=== PATIENT | male | born 1965 | race African-American/Black ===

== ENCOUNTER 2017-03-20 07:39 | Emergency (ER) | payer SELFPAY ==
[~2017-03-20] VITALS: Ht 182.9 cm; Wt 95.5 kg
[2017-03-20 07:41] VITALS: BP 138/86; PULSE 82; RESP 20; TEMP 97.5; O2SAT 98
[2017-03-20] MEDS ORDERED: IBUP800T23 PO (07:58)
--- NOTE | 2017-03-20 07:59 | PD ---
HPI Chief Complaint: Bite or Sting Time Seen by Provider: 07:57 Travel History International Travel<30 days: No Contact w/Intl Traveler<30days: No Traveled to known affect area: No History of Present Illness HPI 52-year-old male presents to the emergency Department with complaint of possible insect bites to his right second and third digits 2 weeks. He said this started out as blisters and then he popped them and they have not completely healed yet. He says they are painful and throbbing. He denies fever , chills, nausea, vomiting. Denies paresthesias, loss of sensation, decreased range of motion, decreased strength to the affected extremity and hand. Denies edema, erythema, drainage from the wound sites. Has not taken any medications to alleviate his symptoms. Was told to wash the areas with bleach, which he has been doing. Patient says that EMS told him the areas would be fine, and the people at the [facility] told him to come to the ER for check up. Denies being up-to-date on his tetanus vaccination. No known allergies. Has no other medical complaints. No established primary care provider. No other modifying factors or associated signs and symptoms. [facility] Social History Tobacco Use: Yes Allergies-Medications (Allergen,Severity, Reaction): Coded Allergies: No Known Allergies (Unverified , 03/20/17) Reported Meds & Prescriptions Reported Meds & Active Scripts Active Ibuprofen 800 Mg Tab 800 Mg PO Q6HR PRN Review of Systems Except as stated in HPI: all other systems reviewed are Neg Physical Exam Narrative GENERAL: Well-nourished, well-developed male patient, in no acute distress; afebrile, nontoxic-appearing SKIN: Warm and dry. Right second and third digits with scabbed wound; without erythema, edema, drainage. No signs of infection. The fingers are without erythema, edema and with full range of motion and sensory intact. Right upper extremity supple non-tense with 2+ radial pulses and sensory intact without erythema or edema. HEAD: Atraumatic. Normocephalic. EYES: Pupils equal and round. No scleral icterus. No injection or drainage. ENT: Mucosa pink and moist. Airway patent. NECK: Trachea midline. CARDIOVASCULAR: Regular rate. RESPIRATORY: No accessory muscle use. GASTROINTESTINAL: Rounded. MUSCULOSKELETAL: No obvious deformities. No clubbing. No cyanosis. No edema. NEUROLOGICAL: Awake and alert. Oriented 3. No obvious cranial nerve deficits. Motor grossly within normal limits. Normal speech. PSYCHIATRIC: Appropriate mood and affect; insight and judgment normal. Data Data Last Documented VS Vital Signs Date Time Temp Pulse Resp B/P Pulse Ox O2 Delivery O2 Flow Rate FiO2 03/20/17 07:41 97.5 82 20 138/86 98 Room Air Orders Ibuprofen (Motrin) (03/20/17 08:00) Tetanus/Diphtheria Tox Adult (Tetanus/Di (03/20/17 08:00) MDM Medical Decision Making Medical Screen Exam Complete: Yes Emergency Medical Condition: Yes Medical Record Reviewed: Yes Differential Diagnosis Healing wounds, insect bites, wound infection, medical clearance Narrative Course 52-year-old male with physical exam consistent with healing wounds to the right second and third digits. Tetanus updated in the ER. There are no signs of infection to either wound. Both of them are scabbed and without erythema, edema , drainage. Patient denies fever, chills, nausea, vomiting. He is afebrile nontoxic appearing in the ER. Patient reports throbbing sensation in his fingers. Ibuprofen ordered. Ibuprofen prescribed for home. Patient verbalizes understanding and agreement with treatment plan. Patient is medically cleared and stable for discharge. Discussed reasons to return to the emergency department. Instructed patient to follow up with primary care provider. Patient agrees with treatment plan. The patients vital signs are stable and the patient is stable for outpatient follow-up and treatment. Patient discharged home, stable and in no acute distress. Diagnosis Primary Impression: Healing wound Referrals: Primary Care Physician Patient Instructions: Acute Wound Care (ED), General Instructions, Insect Bite or Sting (ED) Additional Instructions: Keep area clean and dry Topical ointment as directed and as needed for wound care Ibuprofen or Tylenol as directed and as needed for pain Follow-up with primary care provider Return to the emergency department immediately with worsening symptoms, particularly as discussed Med/Other Pt SpecificInfo: Prescription(s) given Scripts Ibuprofen 800 Mg [id number] Mg PO Q6HR PRN (PAIN) #30 TAB Ref 0 Prov:Maura White 03/20/17 Disposition: DISCHARGE HOME Condition: Stable Maura White Mar 20, 2017 07:59
[2017-03-20] MEDS ORDERED: TETANUS/DIPHTHERIA TOXOID ADULT 0.5 ML VIAL IM ONE (08:00)
[2017-03-20] MEDS ORDERED: IBUPROFEN 800 MG TAB PO ONE (08:00)
[2017-03-20] MEDS ORDERED: PROZ20CA11 PO (08:02)
== END 2017-03-20 08:24 | disposition home or self-care (01) ==
LOC: NEPK 07:39
DX: S61.200A Unspecified open wound of right index finger without damage to nail, initial encounter (principal); S61.202A Unspecified open wound of right middle finger without damage to nail, initial encounter; X58.XXXA Exposure to other specified factors, initial encounter; Z23 Encounter for immunization
CPT/HCPCS: 90471; 90714

== ENCOUNTER 2017-10-24 11:04 | Emergency (ER) | payer SELFPAY ==
[~2017-10-24 11:04] MED LIST: IBUP1TAB7 PO; PROZ20CA11 PO
[2017-10-24 11:05] VITALS: BP 138/92; PULSE 94; RESP 16; TEMP 98.6; O2SAT 99
[2017-10-24] MEDS ORDERED: MAGICADU2 SWISH-SWAL (11:40)
[2017-10-24] MEDS ORDERED: IBUP1TAB7 PO (11:40)
[2017-10-24] MEDS ORDERED: PENI500T PO (11:40)
--- NOTE | 2017-10-24 11:46 | PD ---
HPI Chief Complaint: Oral / Dental Pain or Problem Time Seen by Provider: 11:28 Travel History International Travel<30 days: No Contact w/Intl Traveler<30days: No Traveled to known affect area: No History of Present Illness HPI 52-year-old male presents to emergency department for left lower gum/tooth pain since Tuesday. Patient states that his tooth started becoming more painful and is moderate. The pain does not radiate Patient has tried to call multiple dentist is having trouble getting into the office secondary to insurance issues. Patient denies a chronic history of tooth problems. Patient denies fever, chills. Patient denies abnormal taste or pain eating. Medical history includes new disorder and hepatitis C. Patient states that he will get in with a dentist as soon as possible. He has been taking Tylenol and ibuprofen with minimal relief. PFSH Past Medical History Bipolar Disorder: Yes Depression: Yes Immunizations Current: Yes Past Surgical History Surgical History: No Previous Surgery Social History Alcohol Use: Yes (daily, beer) Tobacco Use: Yes Substance Use: No Allergies-Medications (Allergen,Severity, Reaction): Coded Allergies: No Known Allergies (Unverified Adverse Reaction, Unknown, 10/24/17) Reported Meds & Prescriptions Reported Meds & Active Scripts Active Ibuprofen 800 Mg Tab 800 Mg PO Q8H PRN 7 Days Penicillin V Potassium 500 Mg Tab 500 Mg PO Q8H 7 Days Magic Mouthwash Adult Liq (Multi-Ingredient Mouthwash/Gargle) 120 Ml Susp 10 Ml SWISH-SWAL ACHS 7 Days Each 5mL contains: Nystatin 200,000units, Diphenhydramine 4.25mg, Viscous Lidocaine 10mg, Anglin syrup 0.8 mL Review of Systems Except as stated in HPI: all other systems reviewed are Neg Physical Exam Narrative GENERAL: Well-nourished, well-developed patient. SKIN: Focused skin assessment warm/dry. HEAD: Normocephalic. EYES: No scleral icterus. No injection or drainage. MOUTH: Mucous membranes moist. White patches along the left lower gumline and nuchal mucosa. No fluctuance noted. No expression of exudate. Molar decayed. NECK: Supple, trachea midline. No JVD or lymphadenopathy. CARDIOVASCULAR: Regular rate and rhythm without murmurs, gallops, or rubs. RESPIRATORY: Breath sounds equal bilaterally. No accessory muscle use. MUSCULOSKELETAL: No cyanosis, or edema. BACK: Nontender without obvious deformity. No CVA tenderness. Data Data Last Documented VS Vital Signs Date Time Temp Pulse Resp B/P (MAP) Pulse Ox O2 Delivery O2 Flow Rate FiO2 10/24/17 12:00 10/24/17 11:05 98.6 94 16 99 Orders Orders Acetamin-Hydrocod 325-5 Mg ([place] 5-325 (10/24/17 12:00) Ed Discharge Order (10/24/17 11:46) MDM Medical Decision Making Medical Screen Exam Complete: Yes Emergency Medical Condition: Yes Differential Diagnosis Dental abscess versus tooth infection versus, infection. Narrative Course 52-year-old male presents to emergency department for left lower gum/tooth pain since Tuesday. Patient states that his tooth started becoming more painful and is moderate. The pain does not radiate Patient has tried to call multiple dentist is having trouble getting into the office secondary to insurance issues. Patient denies a chronic history of tooth problems. Patient denies fever, chills. Patient denies abnormal taste or pain eating. Medical history includes new disorder and hepatitis C. Patient states that he will get in with a dentist as soon as possible. He has been taking Tylenol and ibuprofen with minimal relief. Vital signs stable Physical exam- consistent with gingivitis and tooth abscess, oral candidiasis. No meningismus Antibiotic, mouth rinse, and ibuprofen were outpatient use. Gave patient information regarding dentist. Follow-up primary care physician within 2-3 days. Follow-up with dentist. Return to the emergency department for worsening persistent symptoms Diagnosis Primary Impression: Dental infection Additional Impression: Oral candidiasis Referrals: Dentist Primary Care Physician Additional Instructions: Use medication as prescribed. Follow-up with the dentist and your primary care physician with within 2-3 days. If her symptoms persist or worsen return to the emergency department Scripts Ibuprofen (Ibuprofen) 800 Mg Tab 800 MG PO Q8H Y for Pain/Inflammation for 7 Days, #21 TAB 0 Refills Prov: Oskar Rodriguez MD 10/24/17 Penicillin V Potassium (Penicillin V Potassium) 500 Mg Tab 500 MG PO Q8H for Infection for 7 Days, #21 TAB 0 Refills Prov: Oskar Rodriguez MD 10/24/17 Uaaktvqe-Weovqamdiyupkie-Ebmbrmgsh Liq (Magic Mouthwash Adult Liq) 120 Ml Susp 10 ML SWISH-SWAL ACHS for Infection for 7 Days, #120 ML 0 Refills Each 5mL contains: Nystatin 200,000units, Diphenhydramine 4.25mg, Viscous Lidocaine 10mg, Anglin syrup 0.8 mL Prov: Oskar Rodriguez MD 10/24/17 Disposition: 01 DISCHARGE HOME Condition: Stable Maude Grimes Oct 24, 2017 11:46
[2017-10-24] MEDS ORDERED: ACETAMINOPHEN/HYDROcodone 325 MG/5 MG TAB PO ONE (12:00)
== END 2017-10-24 12:20 | disposition home or self-care (01) ==
LOC: NEPK 11:04
DX: K04.7 Periapical abscess without sinus (principal); B37.0 Candidal stomatitis; F31.9 Bipolar disorder, unspecified; Z72.0 Tobacco use
CPT/HCPCS: 99283

== ENCOUNTER 2018-02-09 10:35 | Emergency (ER) | payer OTHER ==
[~2018-02-09 10:35] MED LIST changes: +MAGICADU2 SWISH-SWAL; +PENI500T PO; -PROZ20CA11 PO
--- NOTE | 2018-02-09 10:50 | PD ---
HPI Chief Complaint: Efrain romeo Time Seen by Provider: 10:40 Travel History International Travel<30 days: No Contact w/Intl Traveler<30days: No Traveled to known affect area: No History of Present Illness HPI 52-year-old male was Efrain breen and brought to the ED for evaluation. Patient states that he had an argument and his boss last week and threatened his boss. Patient went to [facility] today for routine visit and reported incident to the health care provider. Patient was Efrain acted and brought to the ED for evaluation. Patient denies any homicidal suicidal ideation now. Patient denies any headache. Patient denies any visual change. Patient denies any chest pain or shortness of breath. Patient denies abdominal pain. Patient has history of mood swings and bipolar disorder. Patient was given prescription last month however has not taken the medication. Patient states that he has history of alcohol consumption daily. Patient states that he has shaky if he stopped drinking alcohol. Patient denies any illicit drug abuse. PFSH Past Medical History Bipolar Disorder: Yes Depression: Yes Immunizations Current: Yes Social History Alcohol Use: Yes (daily, beer) Tobacco Use: Yes Substance Use: No Allergies-Medications (Allergen,Severity, Reaction): Coded Allergies: No Known Allergies (Unverified Adverse Reaction, Unknown, 10/24/17) Reported Meds & Prescriptions Reported Meds & Active Scripts Active Ibuprofen 800 Mg Tab 800 Mg PO Q8H PRN 7 Days Penicillin V Potassium 500 Mg Tab 500 Mg PO Q8H 7 Days Magic Mouthwash Adult Liq (Multi-Ingredient Mouthwash/Gargle) 120 Ml Susp 10 Ml SWISH-SWAL ACHS 7 Days Each 5mL contains: Nystatin 200,000units, Diphenhydramine 4.25mg, Viscous Lidocaine 10mg, Anglin syrup 0.8 mL Review of Systems General / Constitutional: No: Fever Eyes: No: Visual changes HENT: No: Headaches Cardiovascular: No: Chest Pain or Discomfort Respiratory: No: Shortness of Breath Gastrointestinal: No: Abdominal Pain Genitourinary: No: Dysuria Musculoskeletal: No: Pain Skin: No Rash Neurologic: No: Weakness Psychiatric: No: Depression Endocrine: No: Polydipsia Hematologic/Lymphatic: No: Easy Bruising Physical Exam Narrative GENERAL: Well-nourished, well-developed patient. SKIN: Focused skin assessment warm/dry. HEAD: Normocephalic. EYES: No scleral icterus. No injection or drainage. NECK: Supple, trachea midline. No JVD or lymphadenopathy. CARDIOVASCULAR: Regular rate and rhythm without murmurs, gallops, or rubs. RESPIRATORY: Breath sounds equal bilaterally. No accessory muscle use. GASTROINTESTINAL: Abdomen soft, non-tender, nondistended. MUSCULOSKELETAL: No cyanosis, or edema. BACK: Nontender without obvious deformity. No CVA tenderness. Neurologic exam normal. Data Data Orders Orders Complete Blood Count With Diff (02/09/18 10:46) Comprehensive Metabolic Panel (02/09/18 10:46) Thyroid Stimulating Hormone (02/09/18 10:46) Psych Screen (02/09/18 10:46) Drug Screen, Random Urine (02/09/18 10:46) Alcohol (Ethanol) (02/09/18 10:46) MDM Medical Decision Making Medical Screen Exam Complete: Yes Emergency Medical Condition: Yes Differential Diagnosis Differential diagnosis including adjustment disorder, bipolar disorder. Narrative Course 52-year-old male with history of bipolar disorder, was going, was Zuniga acted for threatening his boss. Patient denies any homicidal or suicidal ideation now. History of alcohol abuse. Meño Hernandez MD Feb 09, 2018 10:50
[2018-02-09] MEDS ORDERED: FLUO-1 PO (10:51)
[2018-02-09] MEDS ORDERED: DIVA250ER PO (10:51)
[2018-02-09 10:58] VITALS: BP 140/99; PULSE 79; RESP 20; TEMP 98; O2SAT 99
[2018-02-09 11:10] LABS: AUTOMATED NEUTROPHIL # 2.9 TH/MM3 (1.8-7.7); BASOPHIL % 0.7 % (0.0-2.0); EOSINOPHIL % 0.7 % (0.0-4.0); HEMATOCRIT 48.3 % (39.0-51.0); HEMOGLOBIN 16.4 GM/DL (13.0-17.0); LYMPH % 26.5 % (9.0-44.0); LYMPHOCYTE # 1.2 TH/MM3 (1.0-4.8); MEAN CELL VOLUME 102.6 FL (80.0-100.0); MEAN CORPUSCULAR HGB CONC 34.1 % (32.0-36.0); MEAN PLATELET VOLUME 6.8 FL (7.0-11.0); MONO % 9.4 % (0.0-8.0); MONOCYTE # 0.4 TH/MM3 (0-0.9); NEUT % 62.7 % (16.0-70.0); PLATELET COUNT 250 TH/MM3 (150-450); WHITE BLOOD COUNT 4.7 TH/MM3 (4.0-11.0)
[2018-02-09 11:25] LABS: ALBUMIN 4.2 GM/DL (3.4-5.0); ALT (GPT) 20 U/L (12-78); AST (GOT) 24 U/L (15-37); BICARBONATE 29.9 MEQ/L (21.0-32.0); BLOOD UREA NITROGEN 8 MG/DL (7-18); CHLORIDE 103 MEQ/L (98-107); CREATININE 1.08 MG/DL (0.60-1.30); GLOMERULAR FILTRATION RATE 87 ML/MIN (>89); GLUCOSE,RANDOM 96 MG/DL (74-106); SODIUM (NA) 138 MEQ/L (136-145)
[2018-02-09 11:33] LABS: ALKALINE PHOSPHATASE 62 U/L (45-117); TOTAL BILIRUBIN ADULT 0.6 MG/DL (0.2-1.0); TOTAL PROTEIN 7.9 GM/DL (6.4-8.2)
[2018-02-09] MEDS ORDERED: LURA20TA PO (11:33)
[2018-02-09 18:33] VITALS: BP 127/89; PULSE 70; RESP 18; O2SAT 100
--- NOTE | 2018-02-09 19:23 | PD ---
History of Present Illness Chief Complaint: Psychiatric Symptoms Time Seen by Provider: 18:20 Travel History International Travel<30 Days: No Contact w/Intl Traveler<30days: No Known affected area: No Legal Status Legal Status: Zuniga Act Zuniga Act Signed By: [facility] History of Present Illness: History of Present Illness 52-year-old, single, male with history of bipolar disorder who presents to [facility] ED under a Zuniga act initiated by CLYDE Mckeon at [facility] outpatient clinic. The Zuniga act alleges that" the patient is expressing homicidal ideation towards his boss, cutting boss with a knife. He was intending to cut the bus boss on Tuesday and he still thinking about this" it also states that he did not take prescribed medication for depression and that in September 2017 his current boss sent him to [facility] for evaluation of impulsivity, aggression and not trusting of people. Electronic medical record is reviewed. No previous contact with [facility] psychiatry. Current toxicology is positive for cocaine. Patient has been monitored in [facility] and he is resented no behavioral concerns. He has been isolative.. Patient is alert, and oriented, casually dressed and maintaining basic hygiene. Eye contact is fair. His affect is blunted. Speech is clear, logical and goal-directed. Of normal rate but low tone. Patient reports that he is been struggling with his anger lately and that he is trying to control it. He admits to having auditory hallucinations non command type " things about my job ". He denies suicidal ideation. Endorses having had thoughts of "wanting to do something to his boss and then states I had a knife in my pocket." Patient reports that he has not been compliant with his prescribed medication including not having taken the left to do that was ordered for him, intermittently taking the Depakote as well as the Prozac. States he sleeping between 4-5 hours per night. He admits to use of alcohol 1-2 cans per day. Denies any other substance use but toxicology is positive for cocaine. PFSH Past Medical History Bipolar Disorder: Yes Depression: Yes Immunizations Current: Yes Tetanus Vaccination: < 5 Years Psychiatric History Psychiatric History Hx Psychiatric Treatment: [facility] outpatient treatment Reports his first psychiatric hospitalization was in 2004 after his mother . and after that he's had 3 suicide attempts. He attempted to hang himself while he was incarcerated in 2004, in 2006 attempted to hang himself as well and in 2009. History of Inpatient Treatment: Yes Guns or firearms in home: No Social History Patient born in [place]. Moved from [place] in December. Lives by himself. He states that he is single and has no family in the area. He has an extensive legal history and served 15 years in residential for aggravated battery. He was released in December 2016. He is currently employed at [employer] and has been employed there for the past 5 months. His mother in 2004 Hx Alcohol Use: Yes (daily, beer) Hx Tobacco Use: Yes Hx Substance Use: Yes Substance Use Type: Alcohol, Nicotine/Cigarettes, Cocaine Hx of Substance Use Treatment: No Family Psychiatric History Unknown Allergies-Medications (Allergen,Severity, Reaction): Coded Allergies: No Known Allergies (Unverified Adverse Reaction, Unknown, 02/09/18) Reported Meds & Prescriptions Reported Meds & Active Scripts Active Reported Latuda (Lurasidone) 20 Mg Tab 20 Mg PO HS Depakote ER (Divalproex Sodium) 250 Mg Hector 250 Mg PO DAILY Prozac (Fluoxetine HCl) 10 Mg Cap 10 Mg PO DAILY Review of Systems Psychiatric: COMPLAINS OF: Mood changes, Homicidal Ideation Except as stated in HPI: all other systems reviewed are Neg Mental Status Examination Appearance: Appropriate Consciousness: Alert Orientation: x4 Motor Activity: Normal gait Speech: Slow Language: Adequate Fund of Knowledge: Adequate Attention and Concentration: Adequate Memory: Unremarkable Mood: Sad Affect: Blunt Thought Process & Associations: Intact Thought Content: Appropriate, Hallucinations Hallucination Type: Auditory Delusion Type: None Suicidal Ideation: No Suicidal Plan: No Suicidal Intention: No Homicidal Ideation: Yes Homicidal Plan: Yes Homicidal Intention: No Insight: Fair Judgment: Adequate MDM Medical Decision Making Medical Record Reviewed: Yes Assessment/Plan 52-year-old male with history of bipolar disorder, history of 3 previous suicide attempt, history of aggressive behavior with legal charges for aggravated battery, currently noncompliant with outpatient psychiatric medication, under the influence of cocaine, who reports increase in thoughts of wanting to harm his boss and more specifically to cut him with a knife. He reports that his boss has been treating him unfairly and therefore he has become more more angry towards him. The patient reported his symptoms to his [facility] outpatient provider he was placed under the Zuniga act. The patient at this time will remain under the Zuniga act. We will place him on [facility] waiting list for disposition so that patient can once again get back on his medication. Orders Orders Complete Blood Count With Diff (02/09/18 10:46) Comprehensive Metabolic Panel (02/09/18 10:46) Thyroid Stimulating Hormone (02/09/18 10:46) Psych Screen (02/09/18 10:46) Drug Screen, Random Urine (02/09/18 10:46) Alcohol (Ethanol) (02/09/18 10:46) Diet Regular Basic (02/09/18 Lunch) Diet Regular Basic (02/09/18 Dinner) Results Vital Signs Date Time Temp Pulse Resp B/P (MAP) Pulse Ox O2 Delivery O2 Flow Rate FiO2 02/09/18 18:33 70 18 127/89 (102) 100 Room Air 02/09/18 10:58 98.0 79 20 140/99 (113) 99 Laboratory Tests Test 02/09/18 11:00 White Blood Count 4.7 Red Blood Count 4.70 Hemoglobin 16.4 Hematocrit 48.3 Mean Corpuscular Volume 102.6 Mean Corpuscular Hemoglobin 35.0 Mean Corpuscular Hemoglobin Concent 34.1 Red Cell Distribution Width 14.0 Platelet Count 250 Mean Platelet Volume 6.8 Neutrophils (%) (Auto) 62.7 Lymphocytes (%) (Auto) 26.5 Monocytes (%) (Auto) 9.4 Eosinophils (%) (Auto) 0.7 Basophils (%) (Auto) 0.7 Neutrophils # (Auto) 2.9 Lymphocytes # (Auto) 1.2 Monocytes # (Auto) 0.4 Eosinophils # (Auto) 0.0 Basophils # (Auto) 0.0 CBC Comment DIFF FINAL Differential Comment Blood Urea Nitrogen 8 Creatinine 1.08 Random Glucose 96 Total Protein 7.9 Albumin 4.2 Calcium Level 9.0 Alkaline Phosphatase 62 Aspartate Amino Transf (AST/SGOT) 24 Alanine Aminotransferase (ALT/SGPT) 20 Total Bilirubin 0.6 Sodium Level 138 Potassium Level 4.2 Chloride Level 103 Carbon Dioxide Level 29.9 Anion Gap 5 Estimat Glomerular Filtration Rate 87 Thyroid Stimulating Hormone 3rd Gen 1.010 Urine Opiates Screen NEG Urine Barbiturates Screen NEG Urine Amphetamines Screen NEG Urine Benzodiazepines Screen NEG Urine Cocaine Screen POS Urine Cannabinoids Screen NEG Ethyl Alcohol Level LESS THAN 3 Diagnosis Primary Impression: Bipolar disorder Problem Qualifiers Primary Impression: Bipolar disorder Qualified Codes: F31.62 - Bipolar disorder, current episode mixed, moderate CespedesSobeida steven [employer] Feb 09, 2018 19:23
[2018-02-10 06:40] VITALS: BP 128/87; PULSE 78; RESP 20; O2SAT 99
--- NOTE | 2018-02-10 09:33 | PD ---
Physical Exam Date Seen by Provider: Feb 10, 2018 Narrative 52-year-old male presents emergency department as a blake act for homicidal intent. Patient was cleared to see psych, then cleared by psych. I had a discussion with the patient regarding the course of his emergency department visit. Patient says that he is ready to go home and does not feel the same as he did when he arrived. Says "sometimes it is good to have something like his happen to appreciate what you have". He does not want to hurt anyone or himself. He should follow up with psych as an outpatient. Ensure compliance with all medications. Pt is discharged home. Return to work tomorrow. Data Data Last Documented VS Vital Signs Date Time Temp Pulse Resp B/P (MAP) Pulse Ox O2 Delivery O2 Flow Rate FiO2 02/10/18 06:40 78 20 128/87 (101) 99 Room Air 02/09/18 10:58 98.0 Orders Orders Complete Blood Count With Diff (02/09/18 10:46) Comprehensive Metabolic Panel (02/09/18 10:46) Thyroid Stimulating Hormone (02/09/18 10:46) Psych Screen (02/09/18 10:46) Drug Screen, Random Urine (02/09/18 10:46) Alcohol (Ethanol) (02/09/18 10:46) Diet Regular Basic (02/09/18 Lunch) Diet Regular Basic (02/09/18 Dinner) Valproic Acid (Depakene) (02/09/18 19:30) Diet Regular Basic (02/10/18 Breakfast) Diet Regular Basic (02/10/18 Lunch) Ed Discharge Order (02/10/18 09:42) Labs Laboratory Tests Test 02/09/18 11:00 White Blood Count 4.7 TH/MM3 Red Blood Count 4.70 MIL/MM3 Hemoglobin 16.4 GM/DL Hematocrit 48.3 % Mean Corpuscular Volume 102.6 FL Mean Corpuscular Hemoglobin 35.0 PG Mean Corpuscular Hemoglobin Concent 34.1 % Red Cell Distribution Width 14.0 % Platelet Count 250 TH/MM3 Mean Platelet Volume 6.8 FL Neutrophils (%) (Auto) 62.7 % Lymphocytes (%) (Auto) 26.5 % Monocytes (%) (Auto) 9.4 % Eosinophils (%) (Auto) 0.7 % Basophils (%) (Auto) 0.7 % Neutrophils # (Auto) 2.9 TH/MM3 Lymphocytes # (Auto) 1.2 TH/MM3 Monocytes # (Auto) 0.4 TH/MM3 Eosinophils # (Auto) 0.0 TH/MM3 Basophils # (Auto) 0.0 TH/MM3 CBC Comment DIFF FINAL Differential Comment Blood Urea Nitrogen 8 MG/DL Creatinine 1.08 MG/DL Random Glucose 96 MG/DL Total Protein 7.9 GM/DL Albumin 4.2 GM/DL Calcium Level 9.0 MG/DL Alkaline Phosphatase 62 U/L Aspartate Amino Transf (AST/SGOT) 24 U/L Alanine Aminotransferase (ALT/SGPT) 20 U/L Total Bilirubin 0.6 MG/DL Sodium Level 138 MEQ/L Potassium Level 4.2 MEQ/L Chloride Level 103 MEQ/L Carbon Dioxide Level 29.9 MEQ/L Anion Gap 5 MEQ/L Estimat Glomerular Filtration Rate 87 ML/MIN Thyroid Stimulating Hormone 3rd Gen 1.010 uIU/ML Urine Opiates Screen NEG Urine Barbiturates Screen NEG Valproic Acid (Depakene) Level 5 MCG/ML Urine Amphetamines Screen NEG Urine Benzodiazepines Screen NEG Urine Cocaine Screen POS Urine Cannabinoids Screen NEG Ethyl Alcohol Level LESS THAN 3 MG/DL MDM Supervised Visit with ELVIRA: No Diagnosis Primary Impression: Bipolar disorder Qualified Codes: F31.62 - Bipolar disorder, current episode mixed, moderate Justice,Maude PATTERSON Feb 10, 2018 09:33
--- NOTE | 2018-02-10 12:07 | PD.PSY.CON ---
Provisional Diagnosis Admission Date [place] I. Cocaine and alcohol use disorder, history of bipolar disorder [place] II. Antisocial personality disorder History of Present Illness Service Psychiatry Consult Requested By ER Reason for Consult Efrain romeo Primary Care Physician No Primary Care Physician HPI The patient is a 52-year-old -[place] man, single, employed, domiciled alone, with self-reported psychiatric history of bipolar disorder, cocaine and alcohol use disorder, 1 previous psychiatric hospitalization, history of aggressive behavior, poor impulse control, incarcerations, his last incarceration was for 15 years, he was released in the spring 2016, he has an established outpatient care in [facility], he is in Depakote 500 mg twice daily, Prozac 20 mg, no significant medical history, who was Efrain acted and brought to the ED for evaluation. Patient states that he had an argument and his boss last week and threatened his boss. Patient went to [facility] today for routine visit and reported incident to the health care provider. Patient was Efrain acted and brought to the ED for evaluation. Patient denies any homicidal suicidal ideation now. Patient reports good mood, he says that all he needed was to sleep a little bit. Patient states that yesterday he stated that he wanted to harm his boss under the influences of alcohol and cocaine. Is now clinically sober. He says that his boss is actually 1 of his best friends he would never harm him "I was 15 years in group home and I do not want to go back, for the first time in my life I am happy and successful, stating that yesterday was a huge mistake". The patient is logical, coherent and relevant. No loosening of associations, no natalia, no disorganized behavior or speech, no paranoia or delusions are present during this evaluation. He is oriented 3. Review of Systems Constitutional: DENIES: Diaphoretic episodes, Fatigue, Fever, Weight gain, Weight loss, Chills, Dizziness, Change in appetite, Night Sweats Endocrine: DENIES: Heat/cold intolerance, Polydipsia, Polyuria, Polyphagia Eyes: DENIES: Blurred vision, Diplopia, Eye inflammation, Eye pain, Vision loss , Photosensitivity, Double Vision Ears, nose, mouth, throat: DENIES: Tinnitus, Hearing loss, Vertigo, Nasal discharge, Oral lesions, Throat pain, Hoarseness, Ear Pain, Running Nose, Epistaxis, Sinus Pain, Toothache, Odynophagia Respiratory: DENIES: Apneas, Cough, Snoring, Wheezing, Hemoptysis, Sputum production, Shortness of breath Cardiovascular: DENIES: Chest pain, Palpitations, Syncope, Dyspnea on Exertion , PND, Lower Extremity Edema, Orthopnea, Claudication Gastrointestinal: DENIES: Abdominal pain, Black stools, Bloody stools, Constipation, Diarrhea, Nausea, Vomiting, Difficulty Swallowing, Anorexia Genitourinary: DENIES: Sexual dysfunction, Urinary frequency, Urinary incontinence, Urgency, Hematuria, Dysuria, Nocturia, Penile Discharge, Testicular Pain, Testicular Swelling Musculoskeletal: DENIES: Joint pain, Muscle aches, Stiffness, Joint Swelling, Back pain, Neck pain Integumentary: DENIES: Abnormal pigmentation, Nail changes, Pruritus, Rash Hematologic/lymphatic: DENIES: Bruising, Lymphadenopathy Immunologic/allergic: DENIES: Eczema, Urticaria Neurologic: DENIES: Abnormal gait, Headache, Localized weakness, Paresthesias, Seizures, Speech Problems, Tremor, Poor Balance Psychiatric: DENIES: Anxiety, Confusion, Mood changes, Depression, Hallucinations, Agitation, Suicidal Ideation, Homicidal Ideation, Delusions Past Family Social History Coded Allergies: No Known Allergies (Unverified Adverse Reaction, Unknown, 02/09/18) Reported Medications Lurasidone (Latuda) 20 Mg Tab, 20 MG PO HS, #30 TAB 0 Refills 02/09/18 Divalproex ER (Depakote ER) 250 Mg Hector, 250 MG PO DAILY for Control Seizures, #30 TAB 0 Refills 02/09/18 Fluoxetine (Prozac) 10 Mg Cap, 10 MG PO DAILY, #30 CAP 0 Refills 02/09/18 Discontinued Scripts Ibuprofen (Ibuprofen) 800 Mg Tab, 800 MG PO Q8H Y for Pain/Inflammation for 7 Days, #21 TAB 0 Refills Prov:Oskar Rodriguez MD 10/24/17 Penicillin V Potassium (Penicillin V Potassium) 500 Mg Tab, 500 MG PO Q8H for Infection for 7 Days, #21 TAB 0 Refills Prov:Oskar Rodriguez MD 10/24/17 Tlbqhkwy-Nduearxgltjzubg-Vuuicsxxb Liq (Magic Mouthwash Adult Liq) 120 Ml Susp, 10 ML SWISH-SWAL ACHS for Infection for 7 Days, #120 ML 0 Refills Each 5mL contains: Nystatin 200,000units, Diphenhydramine 4.25mg, Viscous Lidocaine 10mg, Anglin syrup 0.8 mL Prov:Oskar Rodriguez MD 10/24/17 Physical Exam Vital Signs Vital Signs Date Time Temp Pulse Resp B/P (MAP) Pulse Ox O2 Delivery O2 Flow Rate FiO2 02/10/18 10:10 02/10/18 06:40 78 20 99 Room Air 02/09/18 10:58 98.0 Mental Status Examination Appearance: Appropriate Consciousness: Alert Orientation: x4 Motor Activity: Normal gait Speech: Slow Language: Adequate Fund of Knowledge: Adequate Attention and Concentration: Adequate Memory: Unremarkable Mood: Sad Affect: Blunt Thought Process & Associations: Intact Thought Content: Appropriate, Hallucinations Hallucination Type: Auditory Delusion Type: None Suicidal Ideation: No Suicidal Plan: No Suicidal Intention: No Homicidal Ideation: No Homicidal Plan: No Homicidal Intention: No Insight: Fair Judgment: Impulsive Assessment & Plan Problem List: (1) Substance induced mood disorder ICD Codes: F19.94 - Other psychoactive substance use, unspecified with psychoactive substance-induced mood disorder Assessment & Plan: On psychiatric evaluation today the patient does not present any neuropsychiatric symptoms that required an immediate psychiatric intervention, he does not present any evidence of natalia, psychosis, depression, anxiety. The patient denies suicidal and homicidal ideation. He denies visual and auditory hallucinations at this moment. He is logical, coherent and relevant. Patient reports that yesterday when he made a homicidal statement toward his boss he was intoxicated with cocaine and alcohol. He Is clinically sober right now. He clarifies multiple times that he would never harm anybody in the society "because I did not want to go back to [facility] and I am happy person ". My impression is that he is homicidal statements yesterday was secondary to intoxication with alcohol and cocaine, but also related with catheter structure , most probably an underlying antisocial personality pathology. Even though the patient carries a chronic risk of poor impulse control and crime I do not think that this risk can be decreased with a psychiatric hospitalization at this moment. After an extensive psychoeducation, support and motivation, patient will be discharged. Assessment & Plan Estimated LOS: Adrian Abdi MD Feb 10, 2018 12:07
== END 2018-02-10 10:23 | disposition home or self-care (01) ==
LOC: NEPJ 10:35
DX: F31.9 Bipolar disorder, unspecified (principal); F14.94 Cocaine use, unspecified with cocaine-induced mood disorder; F17.210 Nicotine dependence, cigarettes, uncomplicated; Z91.14 Patient's other noncompliance with medication regimen; Z72.89 Other problems related to lifestyle; Z79.899 Other long term (current) drug therapy
CPT/HCPCS: 80053; 80164; 80307; 84443; 85025; 99283